=== PATIENT | male | born 1980 | race Caucasian/White ===

== ENCOUNTER 2017-11-14 12:24 | Inpatient (IN) | payer OTHER ==
[2017-11-14 13:53] VITALS: BMI 33.4
--- NOTE | 2017-11-14 14:31 | HP ---
CIWA Score - CIWA Score Nausea/Vomitin Muscle Tremors: 3 Anxiety: 2 Agitation: 2 Paroxysmal Sweats: 1-Minimal Palms Moist Orientation: 0-Oriented Tacttile Disturbances: 1-Very Mild Itch/Numbness Auditory Disturbances: 1-Very Mild Visual Disturbances: 0-None Headache: 2-Mild CIWA-Ar Total Score: 15 Admission ROS BHS - HPI Chief Complaint: i need help to stop drinking alcohol,crystal meth Allergies/Adverse Reactions: Allergies Allergy/AdvReac Type Severity Reaction Status Date / Time No Known Allergies Allergy Verified 11/14/17 13:56 History of Present Illness: this 37 years old male with alcohol dependence and crystal meth,seeking detox, seen at [facility] last night,refer for detox multiple admissions ptsd depression longest period of sobriety 6 months dehydration history of hypertension history of back surgery in 06/03 Exam Limitations: No Limitations - Ebola screening Have you traveled outside of the country in the last 21 days: No (N) Have you had contact with anyone from an Ebola affected area: No Have you been sick,other than usual withdrawal symptoms: No Do you have a fever: No - Review of Systems Constitutional: Loss of Appetite, Malaise, Night Sweats EENT: reports: Nose Congestion Respiratory: reports: No Symptoms reported Cardiac: reports: No Symptoms Reported GI: reports: Nausea, Abdominal cramping : reports: No Symptoms Reported Musculoskeletal: reports: Muscle Pain Integumentary: reports: Dryness Neuro: reports: Headache, Tremors Endocrine: reports: No Symptoms Reported Hematology: reports: No Symptoms Reported Psychiatric: reports: No Sypmtoms Reported, Judgement Intact, Mood/Affect Appropiate, other (ptsd,depression) Other Systems: Reviewed and Negative Patient History - Patient Medical History Hx Anemia: No Hx Asthma: No Hx Chronic Obstructive Pulmonary Disease (COPD): No Hx Cancer: No Hx Cardiac Disorders: No Hx Congestive Heart Failure: No Hx Hypertension: Yes (on clonidine) Hx Hypercholesterolemia: No Hx Pacemaker: No HX Cerebrovascular Accident: No Hx Seizures: No Hx Dementia: No Hx Diabetes: No Hx Gastrointestinal Disorders: No Hx Liver Disease: No Hx Genitourinary Disorders: No Hx Sexually Transmitted Disorders: No Hx Renal Disease (ESRD): No Hx Thyroid Disease: No Hx Human Immunodeficiency Virus (HIV): No (last 11/03 negative) Hx Hepatitis C: No Hx Depression: Yes Hx Suicide Attempt: No Hx Bipolar Disorder: No Hx Schizophrenia: No Other Medical History: ptsd,no suicidal,no homicidal,history of back surgery - Patient Surgical History Past Surgical History: Yes Hx Orthopedic Surgery: Yes (BACK SURGERY 05/2017 [facility]) - PPD History Previous Implant?: Yes Implanted On Prior R Admission?: No PPD to be Administered?: Yes - Smoking Cessation Smoking history: Never smoked Hx Chewing Tobacco Use: No - Substance & Tx. History Hx Alcohol Use: Yes Hx Substance Use: Yes Substance Use Type: Alcohol Hx Substance Use Treatment: Yes (10/03 [facility]) - Substances Abused Alcohol Route: Oral Frequency: Daily Amount used: 1 PINT VODKA AND 12 BEER Age of first use: 19 Date of Last Use: 11/14/17 CRYSTAL METH Route: Smoking Frequency: Daily Amount used: $120 Age of first use: 37 Date of Last Use: 11/12/17 Family Disease History - Family Disease History Family History: Denies Admission Physical Exam [facility] - Vital Signs Vital Signs: Vital Signs - 24 hr 11/14/17 13:50 Temperature 96.4 F L Pulse Rate 87 Respiratory 18 Rate Blood Pressure 127/80 - Physical General Appearance: Yes: Moderate Distress, Tremorous, Irritable, Sweating, Anxious HEENTM: Yes: Normal ENT Inspection, KARSON, Pharynx Normal Respiratory: Yes: Lungs Clear, Normal Breath Sounds, No Respiratory Distress Neck: Yes: Within Normal Limits Breast: Yes: Within Normal Limits Cardiology: Yes: Regular Rhythm, Regular Rate, S1, S2 Abdominal: Yes: Within Normal Limits, Normal Bowel Sounds, Non Tender, Flat, Soft Genitourinary: Yes: Within Normal Limits Back: Yes: Muscle Spasm, Surgical Scar Musculoskeletal: Yes: Back pain, Muscle Pain Extremities: Yes: Tremors Neurological: Yes: it applications developer II-XII NML intact, Fully Oriented, Alert, Motor Strength 5/5 Integumentary: Yes: Dry Lymphatic: Yes: Within Normal Limits - Diagnostic (1) Alcohol dependence with uncomplicated withdrawal Current Visit: Yes Status: Acute (2) Methamphetamine abuse Current Visit: Yes Status: Acute (3) Depression Current Visit: Yes Status: Acute (4) Post traumatic stress disorder (PTSD) Current Visit: Yes Status: Acute (5) Dehydration Current Visit: Yes Status: Acute Cleared for Admission [facility] - Detox or Rehab [facility] Level of Care: Medically Managed Detox [facility]imen[facility] Breath Alcohol Content Breath Alcohol Content: 0 Urine Drug Screen - Results Drug Screen Negative: No Urine Drug Screen Results: AMP-Amphetamines, MET-Methamphetamine, BZO- Benzodiazepines
[2017-11-14] MEDS ORDERED: P-EPHED 60MG/TRIPROLIDI 2.5MG TABLET PO PRN (14:45)
[2017-11-14] MEDS ORDERED: chlordiazePOXIDE HCL 25 MG CAPSULE PO PRN (14:45)
[2017-11-14] MEDS ORDERED: ACETAMINOPHEN 325 MG TABLET (FP) PO PRN (14:45)
[2017-11-14] MEDS ORDERED: MAG HYDROX/AL HYDROX/SIMETH 30 ML UNIT-DOSE CUP PO PRN (14:45)
[2017-11-14] MEDS ORDERED: hydrOXYzine PAMOATE 50 MG CAPSULE (FP) PO PRN (14:45)
[2017-11-14] MEDS ORDERED: IBUPROFEN 400 MG TABLET (FP) PO PRN (14:45)
[2017-11-14] MEDS ORDERED: MENTHOL/PHENOL 1 EACH UD MM PRN (14:45)
[2017-11-14] MEDS ORDERED: MAGNESIUM CITRATE 300 ML BOTTLE PO PRN (14:45)
[2017-11-14] MEDS ORDERED: LOPERAMIDE HCL 2 MG CAPSULE PO PRN (14:45)
[2017-11-14] MEDS ORDERED: MAGNESIUM HYDROX 2400MG/30ML ORAL SUSPENSION 30 ML CUP PO PRN (14:45)
[2017-11-14] MEDS ORDERED: guaiFENesin/D-METHORPHAN HB 10 ML UNIT-DOSE CUPS PO PRN (14:45)
[2017-11-14] MEDS: chlordiazePOXIDE HCL 25 MG CAPSULE PO SCH ×2 (17:53→22:38)
[2017-11-14] MEDS ORDERED: MELATONIN 5 MG TABLETS PO PRN (22:00)
[2017-11-14] MEDS: THIAMINE HCL 100 MG TABLET (FP) PO SCH (22:38)
[2017-11-14] MEDS: cloNIDine HCL 0.1 MG TABLET PO SCH (22:39)
[2017-11-15] MEDS: chlordiazePOXIDE HCL 25 MG CAPSULE PO SCH ×4 (06:08→22:16)
--- NOTE | 2017-11-15 09:25 | CONSULT ---
[facility] Psychiatric Consult - Data Date of interview: 11/15/17 Admission source: Admitted as a transfer from [facility] Identifying data: Patient is a 37 y/o male single, domiciled, unemployed , childless, on disability Substance Abuse History: Fisrt admission to [facility] due to ETOH, Crystal meth. Urine tox + for benzo and amphetamines. He endorses multiple past Detox admissions and treatment. Drrink Vodka and beer daily. Denies black out spells withdrawal symptoms or seizure disorder. Refer to addiction counselor note for more detailed drug history Medical History: HTN. History of back surgery @ [facility] in May Psychiatric History: Patient was somewhat vague providing information about his mental health history. He denies prior psychiatric hospitalization, he explained that he [facility], does not remember medication name. At this time he feels a little bit depressed, denies anxiety symptoms denies re-e expeiencing past trauma, refuses to elaborate about his past trauma. C/o insomnia no anorexia Physical/Sexual Abuse/Trauma History: Denied Mental Status Exam - Mental Status Exam Alert and Oriented to: Place, Person Cognitive Function: Fair Patient Appearance: Unkempt Mood: Apathetic Affect: Constricted Patient Behavior: Fatigued, Guarded Speech Pattern: Appropriate Voice Loudness: Mildly Loud Thought Process: Intact Thought Disorder: Not Present Hallucinations: None Suicidal Ideation: None Homicidal Ideation: None Insight/Judgement: Poor Sleep: Poorly Appetite: Good Muscle strength/Tone: Normal Gait/Station: Normal Psychiatric Findings - Problem List ([place] 1, 2,3) (1) Alcohol dependence with uncomplicated withdrawal Current Visit: Yes Status: Acute (2) Methamphetamine abuse Current Visit: Yes Status: Acute (3) Post traumatic stress disorder (PTSD) Current Visit: Yes Status: Acute - Initial Treatment Plan Initial Treatment Plan: Continue detox protocol. Psychoeducation. Monitor response
[2017-11-15] MEDS: cloNIDine HCL 0.1 MG TABLET PO SCH ×2 (10:11→22:16)
[2017-11-15] MEDS: PRENATAL VITAMINS W/ FOLIC ACID TABLET (FP) PO SCH (10:12)
[2017-11-15 11:15] LABS: HEMATOCRIT 44.3 % (35.4-49); MCH 30.8 pg (25.7-33.7); MCHC 33.8 g/dl (32.0-35.9); MEAN CELL VOLUME 91.1 fl (80-96); MEAN PLT VOLUME 8.4 fl (7.5-11.1); PLATELET COUNT 396 K/MM3 (134-434); RBC 4.87 M/mm3 (4.00-5.60); RDW 14.3 % (11.9-15.9); WHITE BLOOD COUNT 5.9 K/mm3 (4.0-10.0)
[2017-11-15 11:39] LABS: ALBUMIN 3.2 g/dl (3.4-5.0); ALK PHOS 76 U/L (45-117); ANION GAP 6 MMOL/L (8-16); BILIRUBIN,TOTAL 0.5 mg/dL (0.2-1); BLOOD UREA NITROGEN 13 mg/dL (7-18); CALCIUM 8.5 mg/dL (8.5-10.1); CHLORIDE 101 mmol/L (98-107); CO2 31 mmol/L (21-32); CREATININE 1.1 mg/dL (0.55-1.3); GLUCOSE,RANDOM 61 mg/dL (74-106); POTASSIUM 4.2 mmol/L (3.5-5.1); SGOT/AST 21 U/L (15-37); SGPT/ALT 40 U/L (13-61); SODIUM 138 mmol/L (136-145); TOT PROT 6.5 g/dl (6.4-8.2)
--- NOTE | 2017-11-15 14:49 | PN ---
S CIWA - CIWA Score Nausea/Vomitin-Mild Nausea/No Vomiting Muscle Tremors: 4-Moderate,w/Arms Extend Anxiety: 4-Mod. Anxious/Guarded Agitation: 4-Moderately Restless Paroxysmal Sweats: 3 Orientation: 0-Oriented Tacttile Disturbances: 0-None Auditory Disturbances: 0-None Visual Disturbances: 0-None Headache: 1-Very Mild CIWA-Ar Total Score: 17 BHS Progress Note (SOAP) Subjective: Tremor, agitated, restless, angry; patient demanding to have HIV meds for Pre- exposure prophylaxis (PEP) stating that he should be taking it every day. As per patient, he was seen at [facility] and given Rx for PEP and that the Rx is in his belongings. Staff accompanied patient to get Rx from his belongings. Patient provided a hospital discharge paper from [facility], tel [phone] dated 11/13/17 in which he was dx with chronic B/L LBP without sciatica and Rx ibuprofen. As per ER note, patient was given emtricitabine- tenofovir disoproxil fumarate (truvada), raltegravir (Isentress) x 1 dose. Patient also received appt for follow up at [facility] located at [address] [place] [address], tel [phone]. Objective: 11/15/17 14:49 Last Vital Signs Temp Pulse Resp BP Pulse Ox 98.3 F 83 18 137/80 11/15/17 14:38 11/15/17 14:38 11/15/17 14:38 11/15/17 14:38 Laboratory Tests 11/15/17 11/15/17 11/15/17 07:49 07:49 07:49 WBC 5.9 RBC 4.87 Hgb 15.0 Hct 44.3 MCV 91.1 MCH 30.8 MCHC 33.8 RDW 14.3 Plt Count 396 MPV 8.4 Sodium 138 Potassium 4.2 Chloride 101 Carbon Dioxide 31 Anion Gap 6 L BUN 13 Creatinine 1.1 Creat Clearance w eGFR > 60 Random Glucose 61 L Calcium 8.5 Total Bilirubin 0.5 AST 21 ALT 40 Alkaline Phosphatase 76 Total Protein 6.5 Albumin 3.2 L RPR Titer Nonreactive Labs reviewed Assessment: 11/15/17 14:50 Withdrawal sx Plan: Continue detox Patient instructed to follow up with his PCP post discharge as scheduled by [facility]
[2017-11-15] MEDS: THIAMINE HCL 100 MG TABLET (FP) PO SCH (22:16)
[2017-11-16] MEDS: chlordiazePOXIDE HCL 25 MG CAPSULE PO SCH ×2 (05:43→10:19)
[2017-11-16] MEDS: cloNIDine HCL 0.1 MG TABLET PO SCH ×2 (10:18→22:14)
[2017-11-16] MEDS: PRENATAL VITAMINS W/ FOLIC ACID TABLET (FP) PO SCH (10:18)
--- NOTE | 2017-11-16 15:15 | PN ---
S CIWA - CIWA Score Nausea/Vomitin Muscle Tremors: 3 Anxiety: 6 Agitation: 4-Moderately Restless Paroxysmal Sweats: 2 Orientation: 0-Oriented Tacttile Disturbances: 0-None Auditory Disturbances: 0-None Visual Disturbances: 0-None Headache: 0-None Present CIWA-Ar Total Score: 18 S Progress Note (SOAP) Subjective: SHAKES SWEATS STATES HE WAS STUCK WITH A "HIV NEEDLE" AND WANTS PEP MEDICATION Objective: 11/16/17 15:17 A& O X 3 ANXIOUS Vital Signs Temperature 97.6 F 11/16/17 13:24 Pulse Rate 74 11/16/17 13:24 Respiratory Rate 18 11/16/17 13:24 Blood Pressure 143/84 11/16/17 13:24 O2 Sat by Pulse Oximetry (%) Laboratory Last Values WBC 5.9 K/mm3 (4.0-10.0) 11/15/17 07:49 RBC 4.87 M/mm3 (4.00-5.60) 11/15/17 07:49 Hgb 15.0 GM/dL (11.7-16.9) 11/15/17 07:49 Hct 44.3 % (35.4-49) 11/15/17 07:49 MCV 91.1 fl (80-96) 11/15/17 07:49 MCH 30.8 pg (25.7-33.7) 11/15/17 07:49 MCHC 33.8 g/dl (32.0-35.9) 11/15/17 07:49 RDW 14.3 % (11.9-15.9) 11/15/17 07:49 Plt Count 396 K/MM3 (134-434) 11/15/17 07:49 MPV 8.4 fl (7.5-11.1) 11/15/17 07:49 Sodium 138 mmol/L (136-145) 11/15/17 07:49 Potassium 4.2 mmol/L (3.5-5.1) 11/15/17 07:49 Chloride 101 mmol/L (98-107) 11/15/17 07:49 Carbon Dioxide 31 mmol/L (21-32) 11/15/17 07:49 Anion Gap 6 MMOL/L (8-16) L 11/15/17 07:49 BUN 13 mg/dL (7-18) 11/15/17 07:49 Creatinine 1.1 mg/dL (0.55-1.3) 11/15/17 07:49 Creat Clearance w eGFR > 60 (>60) 11/15/17 07:49 Random Glucose 61 mg/dL (74-106) L 11/15/17 07:49 Calcium 8.5 mg/dL (8.5-10.1) 11/15/17 07:49 Total Bilirubin 0.5 mg/dL (0.2-1) 11/15/17 07:49 AST 21 U/L (15-37) 11/15/17 07:49 ALT 40 U/L (13-61) 11/15/17 07:49 Alkaline Phosphatase 76 U/L (45-117) 11/15/17 07:49 Total Protein 6.5 g/dl (6.4-8.2) 11/15/17 07:49 Albumin 3.2 g/dl (3.4-5.0) L 11/15/17 07:49 RPR Titer Nonreactive (NONREACTIVE) 11/15/17 07:49 UA STILL PENDING Assessment: 11/16/17 15:18 WITHDRAWAL SX Plan: CONTINUE DETOX MESSAGE LEFT FOR INFECTIOUS DISEASE'S MARY KATE SMITH, CLINICAL FILM PROJECTOR OPERATOR AT [phone] FOR FOLLOW UP
[2017-11-16] MEDS: chlordiazePOXIDE 5 MG CAPSULE PO SCH ×2 (17:23→22:14)
--- NOTE | 2017-11-16 17:49 | PN ---
S Progress Note Note: TRUVADA AND ISENTRESS ORDERED FOR PROPHYLAXIS S/P PT'S CLAIM THAT HE WAS EXPOSED TO HIV CONTAINING NEEDLE/SURFACE LAST THURSDAY PER CONSULT WITH LIANA OF ID DEPT. SIDE EFFECT OF MEDICATION/NEED FOR COMPLIANCE DISCUSSED WITH PT HIV TESTING ALSO ORDERED
[2017-11-16 18:13] LABS: URINE APPEARANCE CLEAR; URINE BILIRUBIN NEGATIVE (<2.0 mg/dL); URINE COLOR LTYELLOW; URINE GLUCOSE (UA) NEGATIVE (NEGATIVE); URINE KETONE NEGATIVE (NEGATIVE); URINE LEUK ESTERASE NEGATIVE (NEGATIVE); URINE NITRITE NEGATIVE (NEGATIVE); URINE PROTEIN NEGATIVE (NEGATIVE); URINE UROBILINOGEN NEGATIVE mg/dL (0.2-1.0)
[2017-11-16] MEDS: EMTRICITABINE 200MG/TENOFOVIR 300MG PO SCH (18:42)
[2017-11-16] MEDS: RALTEGRAVIR POTASSIUM 400 MG TAB PO SCH (22:14)
[2017-11-16] MEDS: THIAMINE HCL 100 MG TABLET (FP) PO SCH (22:14)
[2017-11-17] MEDS: chlordiazePOXIDE 5 MG CAPSULE PO SCH ×2 (05:53→10:24)
[2017-11-17] MEDS: cloNIDine HCL 0.1 MG TABLET PO SCH ×2 (10:24→22:08)
[2017-11-17] MEDS: PRENATAL VITAMINS W/ FOLIC ACID TABLET (FP) PO SCH (10:24)
[2017-11-17] MEDS: RALTEGRAVIR POTASSIUM 400 MG TAB PO SCH ×2 (10:24→22:08)
[2017-11-17] MEDS: EMTRICITABINE 200MG/TENOFOVIR 300MG PO SCH (10:25)
--- NOTE | 2017-11-17 11:08 | EKG ---
Test Reason : Blood Pressure : / mmHG Vent. Rate : 071 BPM Atrial Rate : 071 BPM P-R Int : 162 ms QRS Dur : 106 ms QT Int : 430 ms P-R-T Axes : 055 063 048 degrees QTc Int : 467 ms NORMAL SINUS RHYTHM NORMAL ECG NO PREVIOUS ECGS AVAILABLE Confirmed by Anil Marin MD ([id number]) on 11/17/2017 11:07:48 AM Referred By: Confirmed By:Anil Marin MD
--- NOTE | 2017-11-17 11:26 | PN ---
[facility] Progress Note Note: Patient continues detox for ETOH withdrawal syndrome. Patient states he feels tired, sweaty, nauseous and has "shakes". Vital Signs Temperature 97.3 F L 11/17/17 09:22 Pulse Rate 77 11/17/17 09:22 Respiratory Rate 18 11/17/17 09:22 Blood Pressure 124/78 11/17/17 09:22 O2 Sat by Pulse Oximetry (%) Laboratory Tests 11/15/17 11/15/17 11/15/17 07:49 07:49 07:49 WBC 5.9 RBC 4.87 Hgb 15.0 Hct 44.3 MCV 91.1 MCH 30.8 MCHC 33.8 RDW 14.3 Plt Count 396 MPV 8.4 Sodium 138 Potassium 4.2 Chloride 101 Carbon Dioxide 31 Anion Gap 6 L BUN 13 Creatinine 1.1 Creat Clearance w eGFR > 60 Random Glucose 61 L Calcium 8.5 Total Bilirubin 0.5 AST 21 ALT 40 Alkaline Phosphatase 76 Total Protein 6.5 Albumin 3.2 L Urine Color Urine Appearance Urine pH Ur Specific Quinn Urine Protein Urine Glucose (UA) Urine Ketones Urine Blood Urine Nitrite Urine Bilirubin Urine Urobilinogen Ur Leukocyte Esterase RPR Titer Nonreactive 11/16/17 14:32 WBC RBC Hgb Hct MCV MCH MCHC RDW Plt Count MPV Sodium Potassium Chloride Carbon Dioxide Anion Gap BUN Creatinine Creat Clearance w eGFR Random Glucose Calcium Total Bilirubin AST ALT Alkaline Phosphatase Total Protein Albumin Urine Color Ltyellow Urine Appearance Clear Urine pH 7.0 Ur Specific Quinn 1.012 Urine Protein Negative Urine Glucose (UA) Negative Urine Ketones Negative Urine Blood Negative Urine Nitrite Negative Urine Bilirubin Negative Urine Urobilinogen Negative Ur Leukocyte Esterase Negative RPR Titer PE: skin: flushed skin, warm and moist car: s1s2 resp: CTA bl GI: soft, BS+, NT ext: +tremors, no edema a/p: ETOH withdrawal syndrome encouraged oral fluids continue detox as ordered continue to monitor clinically
[2017-11-17] MEDS: chlordiazePOXIDE HCL 10 MG CAPSULE PO SCH ×2 (17:22→22:08)
[2017-11-17] MEDS: THIAMINE HCL 100 MG TABLET (FP) PO SCH (22:08)
[2017-11-18 06:28] VITALS: BP 128/78; PULSE 64; TEMP 96.8
[2017-11-18] MEDS: chlordiazePOXIDE HCL 10 MG CAPSULE PO SCH (06:41)
--- NOTE | 2017-11-18 10:43 | DS ---
[facility] Detox Discharge Summary Admission Date: 11/14/17 Discharge Date: 11/18/17 - History Present History: Alcohol Dependence - Physical Exam Results Vital Signs: Vital Signs Temperature 96.8 F L 11/18/17 06:27 Pulse Rate 64 11/18/17 06:27 Respiratory Rate 18 11/18/17 06:27 Blood Pressure 128/78 11/18/17 06:27 O2 Sat by Pulse Oximetry (%) Pertinent Admission Physical Exam Findings: Patient responded well to detox treatment. Patient medically stable. Denies SI/ HI. PE: alert and oriented x 3. Skin warm and dry. amb ad zafar. In NAD. Patient discharged today. ACT team notified of discharge by counselor with patient present. Patient referred for rehab here at [facility] but patient stated he needed to take care of some personal things at home first. Patient encouraged to go to ER if withdrawal symptoms occur and to attend group meetings to prevent relapse. ACT to follow up with patient. - Treatment Hospital Course: Detox Protocol Followed, Detoxed Safely, Responded well, Discharged Condition Good - Medication Discharge Medications: Ambulatory Orders NK [No Known Home Medication] 11/14/17 - Diagnosis (1) Alcohol dependence with uncomplicated withdrawal Current Visit: Yes Status: Resolved - AMA Did Patient Leave Against Medical Advice: No
== END 2017-11-18 09:36 | disposition home or self-care (01) | DRG 897 ==
LOC: YASAS 12:24 → Y3N 14:23
PROC: HZ2ZZZZ Detoxification Services for Substance Abuse Treatment (ICD-10-PCS; principal; 2017-11-14)
DX: F10.230 Alcohol dependence with withdrawal, uncomplicated (principal); F15.10 Other stimulant abuse, uncomplicated; F32.9 Major depressive disorder, single episode, unspecified; F43.10 Post-traumatic stress disorder, unspecified; I10 Essential (primary) hypertension; E86.0 Dehydration; Z20.6 Contact with and (suspected) exposure to human immunodeficiency virus [HIV]
CPT/HCPCS: 36415; 80053; 81003; 85027; 86593; 87389; 93005; 93010; J0735

== ENCOUNTER 2023-04-01 20:46 | Inpatient (IN) | payer OTHER ==
[2023-04-01 22:43] VITALS: BMI 35.5
[2023-04-01] MEDS ORDERED: MAGNESIUM HYDROX 2400MG/30ML ORAL SUSPENSION 30 ML CUP PO PRN (23:54)
[2023-04-01] MEDS ORDERED: DICYCLOMINE HCL 10 MG CAPSULE PO PRN (23:54)
[2023-04-01] MEDS ORDERED: LOPERAMIDE HCL 2 MG CAPSULE PO PRN (23:54)
[2023-04-01] MEDS ORDERED: ACETAMINOPHEN 325 MG TABLET (FP) PO PRN (23:54)
[2023-04-01] MEDS ORDERED: POLYETHYLENE GLYCOL (HEALTHYLAX) 3350 17 GM PACKET PO PRN (23:54)
[2023-04-01] MEDS ORDERED: hydrOXYzine PAMOATE 25 MG CAPSULE (FP) PO PRN (23:54)
[2023-04-01] MEDS ORDERED: MAG HYDROX/AL HYDROX/SIMETH 30 ML UNIT-DOSE CUP PO PRN (23:54)
[2023-04-01] MEDS ORDERED: IBUPROFEN 600 MG TABLET (FP) PO PRN (23:54)
[2023-04-01] MEDS ORDERED: guaiFENesin 600 MG TABLET.ER (FP) PO PRN (23:54)
[2023-04-01] MEDS ORDERED: NICOTINE POLACRILEX 2 MG GUM BUC PRN (23:54)
[2023-04-01] MEDS ORDERED: IBUPROFEN 400 MG TABLET (FP) PO PRN (23:54)
[2023-04-01] MEDS ORDERED: BENZOCAINE/MENTHOL (CHLORASEPTIC ) LOZENGE MM PRN (23:54)
[2023-04-01] MEDS ORDERED: NALOXONE HCL (KLOXXADO) 8 MG SPRAY NS PRN (23:54)
[2023-04-01] MEDS ORDERED: BISMUTH SUBSALICYLATE 524 MG/30 ML PO PRN (23:54)
[2023-04-01] MEDS ORDERED: ONDANSETRON *ODT* 4 MG TABLET SL PRN (23:54)
[2023-04-01] MEDS ORDERED: BENZONATATE 200 MG CAPSULE PO PRN (23:54)
[2023-04-01] MEDS ORDERED: NALOXONE HCL 0.4 MG/ML VIAL IM PRN (23:54)
[2023-04-02] MEDS: diazePAM 5 MG TABLET PO PRN (02:27)
[2023-04-02] MEDS: diazePAM 5 MG TABLET PO SCH (07:01)
[2023-04-02] MEDS: PRENATAL VITAMINS W/ FOLIC ACID TABLET (FP) PO SCH (10:13)
[2023-04-02] MEDS: NICOTINE 14 MG/24 HOURS TOPICAL PATCH TD SCH (10:13)
[2023-04-02 11:30] LABS: HEMOGLOBIN 13.6 GM/dL (11.7-16.9); MCH 32.9 pg (25.7-33.7); MCHC 35.8 g/dl (32.0-35.9); MEAN CELL VOLUME 91.7 fl (80-96); MEAN PLT VOLUME 8.6 fl (7.5-11.1); PLATELET COUNT 258 10^3/uL (134-434); RBC 4.14 M/mm3 (4.00-5.60); RDW 12.6 % (11.9-15.9); WHITE BLOOD COUNT 6.3 K/mm3 (4.0-10.0)
[2023-04-02 12:04] LABS: CHLORIDE 106 mmol/L (98-107); POTASSIUM 3.9 mmol/L (3.5-5.1); SODIUM 141 mmol/L (136-145)
[2023-04-02 12:11] LABS: ALBUMIN 3.3 g/dl (3.4-5.0); BLOOD UREA NITROGEN 15.6 mg/dL (7-18); CALCIUM 8.7 mg/dL (8.5-10.1)
[2023-04-02 12:12] LABS: ANION GAP 7 mmol/L (4-13); CO2 29 mmol/L (21-32); GLUCOSE,RANDOM 100 mg/dL (74-106)
[2023-04-02 12:13] LABS: CREATININE 1.1 mg/dL (0.55-1.3); SGOT/AST 29 U/L (15-37)
[2023-04-02 12:16] LABS: BILIRUBIN,TOTAL 0.3 mg/dL (0.2-1); TOT PROT 6.3 g/dl (6.4-8.2)
[2023-04-02 12:19] LABS: SGPT/ALT 34 U/L (13-61)
[2023-04-02 12:26] LABS: ALK PHOS 73 U/L (45-117)
[2023-04-02] MEDS: THIAMINE HCL 100 MG TABLET (FP) PO SCH (21:14)
[2023-04-02] MEDS: MELATONIN 5 MG TABLETS PO SCH (21:14)
[2023-04-02] MEDS: SILVER SULFADIAZINE 1% TOP CREAM 50 GM JAR TP SCH (21:16)
[2023-04-03] MEDS: diazePAM 5 MG TABLET PO SCH (05:22)
[2023-04-04] MEDS: diazePAM 5 MG TABLET PO SCH (05:56)
[2023-04-05] MEDS: diazePAM 5 MG TABLET PO ONE (05:58)
[2023-04-05] MEDS: METHOCARBAMOL 500 MG TABLET PO PRN (07:38)
[2023-04-05] MEDS: cloNIDine HCL 0.1 MG TABLET PO ONE (07:38)
[2023-04-07] MEDS ORDERED: amLODIPine BESYLATE 5 MG TABLET (FP) PO SCH (10:45)
[2023-04-07] MEDS: cloNIDine HCL 0.1 MG TABLET PO SCH (10:54)
[2023-04-07] MEDS: amLODIPine BESYLATE 5 MG TABLET (FP) PO SCH (14:07)
[2023-04-09] MEDS ORDERED: INSULIN (NOVOLOG) ASPART 100 UNITS/ML 10ML VIAL ONE (17:12)
[2023-04-13] MEDS ORDERED: NICOTINE 14 MG/24 HOURS TOPICAL PATCH TD PRN (14:59)
[2023-04-14] MEDS: TOPIRAMATE 25 MG TABLET PO SCH (21:09)
[2023-04-16 11:12] VITALS: TEMP 98.4
[2023-04-16 11:13] VITALS: BP 122/87; PULSE 61; RESP 18
== END 2023-04-16 09:45 | disposition home or self-care (01) | DRG 895 ==
LOC: YASAS 20:46 → Y3N 04-02 01:25 → Y3E 04-06 13:24
PROVIDERS: ADMIT Allergy & Immunology; ATTEND Psychiatry & Neurology Pain Medicine
PROC: HZ42ZZZ Group Counseling for Substance Abuse Treatment, Cognitive-Behavioral (ICD-10-PCS; principal; 2023-04-02)
DX: F10.20 Alcohol dependence, uncomplicated (principal); F13.20 Sedative, hypnotic or anxiolytic dependence, uncomplicated; F15.10 Other stimulant abuse, uncomplicated; F43.10 Post-traumatic stress disorder, unspecified; I10 Essential (primary) hypertension; I25.2 Old myocardial infarction; Z86.19 Personal history of other infectious and parasitic diseases; Z87.820 Personal history of traumatic brain injury; Z28.310 Unvaccinated for COVID-19; Z28.9 Immunization not carried out for unspecified reason
CPT/HCPCS: 36415; 80053; 80305; 80307; 85027; 86593; 86780; 87635; 93005; 93010